=== PATIENT | female | born 1980 | race Caucasian/White ===

== ENCOUNTER 2018-02-14 06:42 | Day surgery (SDC) | payer OTHER ==
[2018-02-14] MEDS ORDERED: LIDOCAINE 4% SOLUTION 50 ML BTL (08:48)
[2018-02-14] MEDS ORDERED: FENTAnyl 50 MCG/ML VIAL (09:21)
[2018-02-14] MEDS ORDERED: MIDAZOLAM 1 MG/ML 2 ML INJ ×2 (09:21→09:22)
== END 2018-02-14 17:35 | disposition home or self-care (01) ==
LOC: GIL 06:42
DX: K29.70 Gastritis, unspecified, without bleeding (principal)
CPT/HCPCS: 43239; 84703; 88305; 88312

== ENCOUNTER 2018-10-22 08:47 | Day surgery (SDC) | payer OTHER ==
[2018-10-22] MEDS ORDERED: FENTAnyl 50 MCG/ML VIAL (12:56)
[2018-10-22] MEDS ORDERED: MEPERIDINE 25 MG INJ IV (13:00)
[2018-10-22] MEDS ORDERED: DIPHENHYDRAMINE 50 MG INJ IV (13:00)
[2018-10-22] MEDS ORDERED: METOCLOPRAMIDE 10 MG INJ IV (13:00)
[2018-10-22] MEDS ORDERED: HYDROmorphONE 1 MG/5 ML IV SYRINGE IV ×3 (13:00)
[2018-10-22] MEDS ORDERED: ALBUTEROL 0.083% (NEB) 2.5 MG/3 ML AMP HHN (13:00)
[2018-10-22] MEDS ORDERED: FENTAnyl 50 MCG/ML VIAL IV ×3 (13:00)
[2018-10-22] MEDS: LIDOCAINE 1%/EPI (1:100,000) (MDV) 20 ML (13:24)
[2018-10-22] MEDS: COCAINE 4% 4 ML TOP (13:24)
[2018-10-22] MEDS ORDERED: ROCURONIUM 50 MG INJ (13:38)
[2018-10-22] MEDS ORDERED: LIDOCAINE 100 MG SYRINGE (13:38)
[2018-10-22] MEDS ORDERED: CEFAZOLIN 1 GM INJ (13:38)
[2018-10-22] MEDS ORDERED: SUCCINYLCHOLINE CHLORIDE 100 MG/5 ML SYG IV (13:38)
[2018-10-22] MEDS ORDERED: PROPOFOL 20 ML (13:38)
[2018-10-22] MEDS ORDERED: SUGAMMADEX SODIUM 200 MG/2 ML VIAL IV (13:39)
[2018-10-22] MEDS: NEOMYC/POLYMYX/BACIT 30 GM OINT (13:51)
[2018-10-22] MEDS ORDERED: hydrALAzine 20 MG INJ (14:37)
[2018-10-22] MEDS ORDERED: HYDROmorphONE 1 MG/ML SYG (15:41)
[2018-10-22] MEDS: HYDROmorphONE 1 MG/ML SYG IV (15:45)
[2018-10-22] MEDS ORDERED: OXYCODONE/ACETAMINOPHEN (5/325) TAB PO (16:00)
[2018-10-22] MEDS: ONDANSETRON 4 MG INJ IV (16:18)
== END 2018-10-22 17:58 | disposition home or self-care (01) ==
LOC: SDS 08:47
DX: J34.2 Deviated nasal septum (principal); J34.3 Hypertrophy of nasal turbinates
CPT/HCPCS: 30140; 84703; 88300